=== PATIENT | male | born 1980 | race African-American/Black ===

== ENCOUNTER → 2017-11-16 | Outpatient (CLI) | payer OTHER | LOC: COL.PUL 09:56 | DX: Z02.71 Encounter for disability determination (principal) ==

== ENCOUNTER → 2018-09-18 | Outpatient (CLI) | payer OTHER | LOC: MHCPAIN 09:47 | DX: G89.29 Other chronic pain (principal); M47.817 Spondylosis without myelopathy or radiculopathy, lumbosacral region; M54.16 Radiculopathy, lumbar region; M53.3 Sacrococcygeal disorders, not elsewhere classified | CPT/HCPCS: G0463 ==

== ENCOUNTER → 2019-03-06 | Outpatient (CLI) | payer OTHER | LOC: COL.VAS 09:00 | DX: R59.1 Generalized enlarged lymph nodes (principal) ==

== ENCOUNTER 2019-03-25 07:15 | Outpatient (CLI) | payer OTHER ==
[~2019-03-25] VITALS: Ht 180.3 cm; Wt 105.0 kg
[2019-03-25] MEDS ORDERED: PROAIR HFA0.09 MG/AC IH (08:12)
[2019-03-25] MEDS ORDERED: SINGULAIR 110 MG/TAB PO (08:13)
[2019-03-25] MEDS ORDERED: ALLEGRA 180MG180 MG PO (08:14)
[2019-03-25] MEDS ORDERED: FLONASE NASAL S16 GM NS (08:15)
[2019-03-25] MEDS ORDERED: ADULT MULTIVIT1 EACH PO (08:16)
[2019-03-25] MEDS ORDERED: TURMERIC500 MG PO (08:16)
[2019-03-25] MEDS ORDERED: PROBIOTIC FORMU1 CAP PO (08:17)
[2019-03-25 08:21] VITALS: BP 130/75; PULSE 72; TEMP 97.8
[2019-03-25 09:25] VITALS: BP 130/67; PULSE 79
--- NOTE | 2019-03-25 09:25 | NUR ---
Pt returned to [facility] per cart s/p Bmbx. Pt resting well, at bedside.
[2019-03-25 09:40] VITALS: BP 138/67; PULSE 83
[2019-03-25 09:53] LABS: BASO % 0.9 % (0.0-2.0); EOS # 0.1 (0.0-0.7); EOS % 2.8 % (0-4.0); GRAN # 1.3 (1.4-6.5); GRAN % 29.3 % (42.2-75.2); HEMATOCRIT 38.8 % (42.0-52.0); HEMOGLOBIN 12.3 g/dl (13.5-18.0); LYMPH # 2.3 (1.2-3.4); LYMPH % 53.4 % (20.0-51.0); MEAN CELL VOLUME 93 fl (80.0-100.0); MEAN CORPUSCULAR HEMOGLOBIN 29 pg (27.0-31.0); MEAN CORPUSCULAR HGB CONC 32 g/dl (33.0-37.0); MONO # 0.6 (0.1-0.6); MONO % 13.6 % (1.7-9.3); PLATELET COUNT 237 K/mm3 (130-400); RED BLOOD COUNT 4.18 M/mm3 (4.20-5.60); REDCELL DISTRIBUTION WIDTH-CV 11.8 % (11.5-14.5)
[2019-03-25 09:55] VITALS: BP 131/67; PULSE 65
[2019-03-25 10:10] VITALS: BP 127/70; PULSE 64
--- NOTE | 2019-03-25 10:20 | NUR ---
Pt has ambulated, voided and eder PO intake s n/v. PIV removed with catheter intact.
[2019-03-25 10:23] VITALS: BP 130/67; PULSE 74
--- NOTE | 2019-03-25 10:40 | NUR ---
Pt discharged per w/c by nurse with .
== END 2019-03-25 11:24 | disposition home or self-care (01) ==
LOC: EUO 07:15 → SDCO 09:00 → EUO 11:24
PROVIDERS: Pathology Anatomic Pathology & Clinical Pathology
DX: D72.819 Decreased white blood cell count, unspecified (principal); D64.9 Anemia, unspecified
CPT/HCPCS: J2704; J3010; J7120

== ENCOUNTER 2020-12-16 09:00 | Outpatient (RCR) | payer OTHER ==
[~2020-12-16 09:00] MED LIST: ADULT MULTIVIT1 EACH PO; ALLEGRA 180MG180 MG PO; FLONASE NASAL S16 GM NS; PROAIR HFA0.09 MG/AC IH; PROBIOTIC FORMU1 CAP PO; SINGULAIR 110 MG/TAB PO; TURMERIC500 MG PO
== END 2021-02-25 ==
LOC: MKS.ESL.PT
DX: G71.00 Muscular dystrophy, unspecified (principal)

== ENCOUNTER 2021-04-19 10:00 | Outpatient (RCR) | payer OTHER | END 2021-06-18 | disposition home or self-care (01) | LOC: MKS.ESL.PT | DX: G71.00 Muscular dystrophy, unspecified (principal) | CPT/HCPCS: G0283-GP ==